=== PATIENT | female | born 1945 | race Caucasian/White ===

== ENCOUNTER 2019-03-16 08:45 | Inpatient (IN) | payer MEDICARE ==
[2019-03-04 09:36] LABS: PROTIME 10.4 Seconds (9.20-11.50)
[2019-03-04 11:25] LABS: URINE BILIRUBIN NEGATIVE (Negative); URINE BLOOD NEGATIVE (Negative); URINE CLARITY CLEAR; URINE COLOR YELLOW; URINE GLUCOSE-RANDOM NEGATIVE (Negative); URINE KETONES NEGATIVE (Negative); URINE LEUKOCYTES-REFLEX NEGATIVE (Negative); URINE NITRITE-REFLEX NEGATIVE (Negative); URINE PROTEIN NEGATIVE (Negative); URINE UROBILINOGEN 0.2 E.U./dl (0.2-1.0)
[2019-03-16] VITALS (17 sets, daily range): BP systolic 78–115; BP diastolic 36–63
[~2019-03-16] VITALS: Ht 154.9 cm; Wt 69.4 kg
[~2019-03-16 08:45] MED LIST: ALPRAZOLAM 0.50.5 M1 PO; CYMBALTA60 MG PO; MELATONIN5 MG SUBLING; OMEPRAZOLE 20 M20 M1 PO; SYNTHROID88 MC1 PO; ZANAFLEX2 M1 PO; [UNRECOGNIZED DRUG - REMARK] PO
[2019-03-16 14:47] LABS: HEMATOCRIT 34.6 % (37.0-47.0); HEMOGLOBIN 11.6 gm/dL (12.0-15.0); MCH 27.5 pg (26.0-34.0); MCHC 33.4 g/dL (28.0-37.0); MCV 82.2 fL (80.0-100.0); MPV 8.2 fl. (7.2-11.1); RBC 4.21 mil/uL (4.20-5.00); RDW-CV 14.9 % (10.5-14.5); WBC 20.4 thou/uL (4.0-11.0)
[2019-03-16 15:04] LABS: POTASSIUM 3.4 mmol/L (3.5-5.1)
[2019-03-17] VITALS (18 sets, daily range): BP systolic 94–121; BP diastolic 37–62
[2019-03-17 04:00] LABS: HEMATOCRIT 31.4 % (37.0-47.0); HEMOGLOBIN 10.5 gm/dL (12.0-15.0)
[2019-03-17 04:11] LABS: CALCIUM 7.9 mg/dL (8.5-10.1)
[2019-03-17 04:13] LABS: POTASSIUM 4.4 mmol/L (3.5-5.1)
--- NOTE | 2019-03-17 13:33 | OP ---
[address] [address] OPERATIVE REPORT Name: MARITZA VICK Room: [address] M.R.#: [id number] Admission: 03/16/19 Attend Phys: David Britton Discharge: Date of : 43 Report #: [id number] THIS REPORT FOR: //name// CC: Shane Farias DATE OF SERVICE: 03/16/2019 PREOPERATIVE DIAGNOSIS: Right hip osteoarthritis. POSTOPERATIVE DIAGNOSIS: Right hip osteoarthritis. PROCEDURE: Right total hip arthroplasty. SURGEON: Shane Cuevas II, DO SENIOR SYSTEMS ARCHITECT: FRANCIS Lundy ANESTHESIA: General endotracheal. ESTIMATED BLOOD LOSS: 150 mL. ANTIBIOTICS: Ancef preoperatively. DRAINS: Hemovac. COMPLICATIONS: None. CONDITION OF THE PATIENT: Stable to recovery room. IMPLANTS: Listed in operative record and progress note. BRIEF HISTORY: The patient was seen in the preoperative area. Preoperative H and P was performed. Site was marked. Questions were answered. Risks and benefits were discussed with the patient in detail about surgery. 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 She discussed that this hip was made much shorter than able to make her right hip due to preoperative x-rays and templating. We have discussed that she will have continued leg length discrepancy at the completion of her surgery similar to her preoperative evaluation due to stability of her hip being necessary to keep the legs at a relatively similar position. Every attempt will be made to evaluate this discrepancy if the opportunity is present. The patient verbalized understanding, assuming this procedure [place] [address] OPERATIVE REPORT Name: MARITZA VICK MEGHAN Room: [address] M.R.#: [id number] Admission: 03/16/19 Attend Phys: David Britton Discharge: Date of : 43 Report #: [id number] DESCRIPTION OF PROCEDURE: The patient was taken to the operative suite and placed supine on the operating table, given appropriate anesthesia. The patient's operative hip was placed in the Ellis table leg hernadnez and sterilely prepped and draped in supine position. Surgery began by a longitudinal incision over the anterior portion of the hip. This was carried down to the subcutaneous tissues. A small zakia was made in the tensor fascia. It was then split along its fibers and retracted laterally. An H capsulotomy was then performed and careful hemostasis was obtained with electrocautery and Aquamantys. The head and neck cutting alignment guide was then checked with fluoroscopic guidance. Appropriate cut was made to the head and neck and this was removed. Attention was turned to the acetabulum. Excess labrum was removed. It was then reamed in sequential fashion up to appropriate size. This showed excellent bleeding bone and excellent position on fluoroscopic guidance. The acetabular cup was then malleted into position and secured with cancellous screws. Metal liner was then applied. The patient's leg was then rotated and extended to the Ellis table to expose the femur. It was then broached in sequential fashion up to appropriate size. Appropriate neck was then trialed with appropriate head length and shown to have excellent fit and fill and excellent stability of the hip throughout all range of motion. These trials were removed. The final stem was then malleted into position and the final neck was then malleted into position. It was reduced in appropriate fashion, checked with C-arm for appropriate leg length which showed excellent leg length throughout the exam without evidence of dislocation upon range of motion and shuck testing. Wound was then copiously irrigated. Hemostasis was maintained with electrocautery and Aquamantys. Pain cocktail was injected. PRP gel sprayed to internal aspects of the hip and drain was activated. The H capsulotomy was then closed utilizing #1 Vicryl in [id number] fashion. Tensor fascia was closed with #1 Vicryl in running fashion. Skin was closed with 2-0 Vicryl and running 3-0 Monocryl with Dermabond and sterile dressing applied. The patient was transported to the recovery room in stable condition. Counts were correct throughout the procedure. <ELECTRONICALLY SIGNED> By: Shane Cuevas II, DO 03/17/19 [id number] Cuevas II, DO /nt
[2019-03-18 04:03] LABS: HEMATOCRIT 28.2 % (37.0-47.0); HEMOGLOBIN 9.7 gm/dL (12.0-15.0)
[2019-03-18 09:11] VITALS: BP 83/42
[2019-03-18 16:00] VITALS: BP 88/41
[2019-03-18 20:00] VITALS: BP 99/45
[2019-03-18] MEDS ORDERED: MIRALAX119 GM PO (22:06)
[2019-03-18] MEDS ORDERED: SENOKOT-S TABL1 EACH PO (22:06)
[2019-03-19 08:00] VITALS: BP 102/60
[2019-03-19 10:34] VITALS: BP 102/60
[2019-03-19] MEDS ORDERED: XARELTO10 MG PO (10:50)
[2019-03-19] MEDS ORDERED: PERCOCET 5-3251 EACH PO (10:51)
== END 2019-03-19 11:29 | DRG 469 ==
LOC: M.PRE 08:45 → M.TBA 10:05 → M.ICU 10:05 → M.ORTHSURG 03-17 10:44
PROVIDERS: Family Medicine; Orthopaedic Surgery; ADMIT Internal Medicine
PROC: 0SR90JA Replacement of Right Hip Joint with Synthetic Substitute, Uncemented, Open Approach (ICD-10-PCS; principal; 2019-03-16)
DX: M16.11 Unilateral primary osteoarthritis, right hip (principal); G92 Toxic encephalopathy; K21.9 Gastro-esophageal reflux disease without esophagitis; E03.9 Hypothyroidism, unspecified; F32.9 Major depressive disorder, single episode, unspecified; Z96.1 Presence of intraocular lens; F41.9 Anxiety disorder, unspecified; M79.7 Fibromyalgia; R09.02 Hypoxemia; T41.45XA Adverse effect of unspecified anesthetic, initial encounter; T39.8X5A Adverse effect of other nonopioid analgesics and antipyretics, not elsewhere classified, initial encounter; E78.00 Pure hypercholesterolemia, unspecified; K58.9 Irritable bowel syndrome, unspecified; Y92.89 Other specified places as the place of occurrence of the external cause; Z98.41 Cataract extraction status, right eye; Z72.89 Other problems related to lifestyle; Z98.42 Cataract extraction status, left eye; Z88.1 Allergy status to other antibiotic agents; Z88.2 Allergy status to sulfonamides; Z88.8 Allergy status to other drugs, medicaments and biological substances; Z79.899 Other long term (current) drug therapy; Z90.710 Acquired absence of both cervix and uterus